=== PATIENT | female | born 1985 | race Two or more races ===

== ENCOUNTER 2022-03-31 12:57 | Emergency (ER) | payer BC ==
[~2022-03-31] VITALS: Ht 162.6 cm; Wt 67.1 kg
[2022-03-31 13:45] VITALS: BP 113/70
[2022-03-31] MEDS ORDERED: TDAP [DIPH/PERTUSSIS/TET] 0.5 ML VIAL IM ONE ×2 (13:59→14:00)
--- NOTE | 2022-03-31 14:16 | NUR ---
Dr. Quiroz at bed side explained laceration care to PT. Wound was repaired with Glue. Patient discharged to home in stable condition. Written and verbal after care instructions given. Patient verbalizes understanding of instruction.
== END 2022-03-31 14:23 | disposition home or self-care (01) ==
LOC: ER 13:42
DX: S01.112A Laceration without foreign body of left eyelid and periocular area, initial encounter (principal); W22.01XA Walked into wall, initial encounter; Y93.89 Activity, other specified; Y92.89 Other specified places as the place of occurrence of the external cause; Y99.8 Other external cause status
CPT/HCPCS: 90715